=== PATIENT | male | born 1970 | race African-American/Black ===

== ENCOUNTER 2017-03-06 01:35 | Emergency (ER) | payer MEDICAID ==
[~2017-03-06] VITALS: Ht 185.4 cm; Wt 134.7 kg
[~2017-03-06 01:35] MED LIST: GABA300C3 PO; IBUP800T23 PO; METHO500 PO; NAPR500 PO; PERC5TAB12 PO; Z.0.WALKERFRONT; [UNRECOGNIZED DRUG - REMARK]
[2017-03-06 01:37] VITALS: BP 139/77; PULSE 73; RESP 18; TEMP 98.9; O2SAT 98
--- NOTE | 2017-03-06 03:38 | PD ---
HPI Chief Complaint: Back/ Neck Pain or Injury Time Seen by Provider: 03:38 Travel History International Travel<30 days: No Contact w/Intl Traveler<30days: No Traveled to known affect area: No History of Present Illness HPI 46 year old male with history of chronic back pain and back spasms, presents to emergency department for exacerbation of this. Patient states they started around 10 AM this morning. States he's been trying to tolerate them at home but he is unable to sleep because of them. Denies any new injury. No saddle paresthesia. No loss of bowel or bladder. No lower extremity weakness. Denies IV drug use Patient has no other symptoms to report. PFSH Past Medical History Asthma: No Autoimmune Disease: No Blood Disorders: No Heart Rhythm Problems: Yes (GÓMEZ) Cancer: No Cardiovascular Problems: Yes High Cholesterol: No Chest Pain: No Congestive Heart Failure: No COPD: Yes Diminished Hearing: No Endocrine: No Gout: Yes (right foot) Genitourinary: No Immune Disorder: No Implanted Vascular Access Dvce: Yes Musculoskeletal: Yes Neurologic: No Psychiatric: No Reproductive: No Respiratory: Yes Immunizations Current: Yes Myocardial Infarction: Yes Tetanus Vaccination: < 5 Years Influenza Vaccination: No PNEUMOCCOCAL Vaccine (Year): 2 Past Surgical History Body Medical Devices: SCREWS IN RIGHT HAND Tonsillectomy: Yes Other Surgery: Yes (right hand ) Social History Alcohol Use: Yes (OCC.) Tobacco Use: Yes (2 ppd) Substance Use: No Allergies-Medications (Allergen,Severity, Reaction): Coded Allergies: Lortab (Verified Adverse Reaction, Intermediate, VOMITS, 04/20/16) Reported Meds & Prescriptions Reported Meds & Active Scripts Active Flexeril (Cyclobenzaprine HCl) 10 Mg Tab 10 Mg PO TID PRN Naprosyn (Naproxen) 500 Mg Tab 500 Mg PO BID PRN Review of Systems Except as stated in HPI: all other systems reviewed are Neg Physical Exam Narrative GENERAL: Well-nourished, well-developed male patient, ambulatory with a nonantalgic gait. SKIN: Focused skin assessment warm/dry. HEAD: Normocephalic. EYES: No scleral icterus. No injection or drainage. NECK: Supple, trachea midline. No JVD or lymphadenopathy. CARDIOVASCULAR: Regular rate and rhythm without murmurs, gallops, or rubs. RESPIRATORY: Breath sounds equal bilaterally. No accessory muscle use. GASTROINTESTINAL: Abdomen soft, non-tender, nondistended. MUSCULOSKELETAL: No cyanosis, or edema. 5+ strength equal bilateral lower extremities. Sensation intact distal extremities. No hyperreflexia. BACK: No midline tenderness. Tenderness elicited palpation of the right lumbar paraspinous musculature. Without obvious deformity. No CVA tenderness. Data Data Last Documented VS Vital Signs Date Time Temp Pulse Resp B/P Pulse Ox O2 Delivery O2 Flow Rate FiO2 03/06/17 03:22 16 03/06/17 01:37 98.9 73 139/77 98 Room Air Orders Ketorolac Inj (Toradol Inj) (03/06/17 03:45) Orphenadrine Inj (Norflex Inj) (03/06/17 03:45) Urinalysis - C+S If Indicated (03/06/17 03:38) Corset Quick Draw (03/06/17 ) Brace Quick Draw Corset (03/06/17 ) Labs Laboratory Tests Test 03/06/17 03:45 Urine Color YELLOW Urine Turbidity CLEAR Urine pH 5.0 Urine Specific Iraan 1.025 Urine Protein NEG mg/dL Urine Glucose (UA) NEG mg/dL Urine Ketones NEG mg/dL Urine Occult Blood NEG Urine Nitrite NEG Urine Bilirubin NEG Urine Urobilinogen LESS THAN 2.0 MG/DL Urine Leukocyte Esterase NEG Urine RBC LESS THAN 1 /hpf Urine WBC 1 /hpf Microscopic Urinalysis Comment CULT NOT INDICATED MDM Medical Decision Making Medical Screen Exam Complete: Yes Emergency Medical Condition: Yes Medical Record Reviewed: Yes Differential Diagnosis Muscle spasm versus strain versus discogenic pain versus radiculopathy Narrative Course 46-year-old male presents to emergency department for evaluation of exacerbation of low back pain. Patient appears without distress. There are no acute findings on examination. Patient is given Toradol and Norflex IM. Upon reassessment, patient is resting in the bed with his eyes closed. When he has awoken to be discharged, as he reports that his pain still exists. He is offered a quick draw back brace that is applied here in the emergency department. He is counseled on care. He will be provided pain control home. He agrees to return immediately if any acute worsening of symptoms. Diagnosis Primary Impression: Chronic back pain Qualified Code: M54.5 - Chronic right-sided low back pain without sciatica Referrals: Primary Care Physician Patient Instructions: Back Pain (ED), General Instructions Additional Instructions: Ice and or warm moist heat may help to alleviate symptoms Follow-up with a primary care provider Avoid activity that exacerbates pain Seek pain management evaluation of symptoms persist to better control your pain Return immediately with any acute worsening symptoms Med/Other Pt SpecificInfo: Prescription(s) given Scripts Cyclobenzaprine (Flexeril)10 Mg Tab10 Mg PO TID PRN (MUSCLE SPASM) #15 TAB Ref 0 Prov:Ofe Montes De Oca 03/06/17 Naproxen (Naprosyn)500 Mg [id number] Mg PO BID PRN (PAIN SCALE 1 TO 10) #30 TAB Ref 0 Prov:Ofe Montes De Oca 03/06/17 Disposition: 01 DISCHARGE HOME Condition: Stable Ofe Montes De Oca Mar 06, 2017 03:38
[2017-03-06] MEDS ORDERED: ORPHENADRINE INJ 60 MG/2 ML AMP IM ONE (03:45)
[2017-03-06] MEDS ORDERED: KETOROLAC TROMETHAMINE 60 MG/2 ML (IM) VIAL IM ONE (03:45)
[2017-03-06 04:39] LABS: BLOOD, URINE NEG (NEG); COMMENT (UR) CULT NOT INDICATED; CULTURE IF INDICATED CULT NOT INDICATED; GLUCOSE,URINE NEG (NEG); KETONE, URINE NEG (NEG); NITRITE,URINE NEG (NEG); URINE COLOR YELLOW (YELLW/STRAW)
[2017-03-06] MEDS ORDERED: NAPR500 PO (04:47)
[2017-03-06] MEDS ORDERED: CYCL1TAB29 PO (04:47)
== END 2017-03-06 05:40 | disposition home or self-care (01) ==
LOC: NEPD 01:35
DX: M54.9 Dorsalgia, unspecified (principal); G89.29 Other chronic pain; J44.9 Chronic obstructive pulmonary disease, unspecified; M10.9 Gout, unspecified; I25.2 Old myocardial infarction; F17.200 Nicotine dependence, unspecified, uncomplicated; Z79.899 Other long term (current) drug therapy
CPT/HCPCS: 81001; 96372; 99284; J1885; J2360; L0627

== ENCOUNTER 2017-11-15 01:40 | Emergency (ER) | payer SELFPAY ==
[~2017-11-15] VITALS: Ht 185.4 cm; Wt 135.0 kg
[~2017-11-15 01:40] MED LIST changes: +CYCL10TA PO; -GABA300C3 PO; -IBUP800T23 PO; -METHO500 PO; -PERC5TAB12 PO; -Z.0.WALKERFRONT; -[UNRECOGNIZED DRUG - REMARK]
[2017-11-15 01:45] VITALS: BP 151/73; PULSE 76; RESP 18; TEMP 98.2; O2SAT 97
--- NOTE | 2017-11-15 02:03 | PD ---
HPI Chief Complaint: Oral / Dental Pain or Problem Time Seen by Provider: 01:52 Travel History International Travel<30 days: No Contact w/Intl Traveler<30days: No Traveled to known affect area: No History of Present Illness HPI 47-year-old black male presents emergency department with complains of right upper maxilla dental pain. Patient states that he had been seen by the dentist in the last 1-2 weeks. He has been put on antibiotics and given Motrin 800 mg. He states that he has several teeth pulled. He was told to follow-up. And that he may need additional procedures. Patient denies any fever chills. He states the pain is gotten worse over the last few days. He has been taking ibuprofen without relief. No exacerbating activity. No alleviating activity. Patient denies any fever chills, facial swelling. History Past Medical Histgory Narrative Medical Hypertension, periodontal disease Tetanus Vaccination: < 5 Years Hx Cancer: No Past Surgical History Narrative Surgical Dental extractions Social History Alcohol Use: Yes (OCC.) Tobacco Use: Yes (2 ppW) Allergies-Medications (Allergen,Severity, Reaction): Coded Allergies: acetaminophen (Unverified Adverse Reaction, Intermediate, VOMITS, 11/15/17) hydrocodone (Unverified Adverse Reaction, Intermediate, VOMITS, 11/15/17) Reported Meds & Prescriptions Reported Meds & Active Scripts Active Flexeril (Cyclobenzaprine HCl) 10 Mg Tab 10 Mg PO TID PRN Naprosyn (Naproxen) 500 Mg Tab 500 Mg PO BID PRN Review of Systems General / Constitutional: No: Fever Eyes: No: Visual changes HENT: Positive: Dental Difficulties, No: Headaches, Sore Throat, Rhinorrhea, Congestion, Gingival Bleeding Cardiovascular: No: Chest Pain or Discomfort Respiratory: No: Shortness of Breath Gastrointestinal: No: Abdominal Pain Genitourinary: No: Dysuria Musculoskeletal: No: Pain Skin: No Rash Neurologic: Positive: Headache, No: Weakness Psychiatric: No: Depression Endocrine: No: Polydipsia Hematologic/Lymphatic: No: Easy Bruising Physical Exam Narrative GENERAL: Well-developed, well-nourished in no acute distress. Nontoxic appearing. HEAD: Normocephalic, atraumatic. EYES: Pupils equal round and reactive. Extraocular motions intact. No scleral icterus. No injection or drainage. ENT: TMs clear without erythema. The external auditory canals clear. Nose: clear . Posterior pharynx is pink and moist. No tonsillar edema or exudate. Uvula midline. Airway patent. Patient has evidence of prior recent dental extractions. He points to his first molar as a source of his pain. I do not see any significant swelling. There is periodontal disease but I do not see any obvious abscess at this time. Oral care radius clear and patent. There is no facial swelling. NECK: Trachea midline.Supple, nontender, moves head freely. No central bony tenderness or spasm. CARDIOVASCULAR: Regular rate and rhythm without murmurs, gallops, or rubs. RESPIRATORY: Clear to auscultation. Breath sounds equal bilaterally. No wheezes , rales, or rhonchi. GASTROINTESTINAL: Abdomen soft, non-tender, nondistended. No hepato-splenomegaly , or palpable masses. No guarding. EXTREMITIES: No clubbing, cyanosis, or edema. No joint tenderness, effusion, or edema noted. BACK: Nontender without deformity or crepitance. No flank tenderness. Data Data Last Documented VS Vital Signs Date Time Temp Pulse Resp B/P (MAP) Pulse Ox O2 Delivery O2 Flow Rate FiO2 11/15/17 01:45 98.2 76 18 151/73 (99) 97 MDM Medical Screen Exam Complete: Yes Emergency Medical Condition: No Differential Diagnosis MDM: Moderate Differential diagnoses: Dental abscess, dental caries, osteitis, cellulitis, periodontal disease Narrative Course A medical screening exam was performed: At the time of evaluation the presenting medical condition was determined not to be of an emergent nature. The patient was given the option of receiving additional care, but declined. Patient was given options for additional community resources from which to obtain care. The Patient Has Been advised to seek medical attention for their presenting complaint. The patient has been advised to return to the ER at any time if an emergent condition develops. Primary Impression: Encounter for medical screening examination Condition: Kj Truong Nov 15, 2017 02:03
== END 2017-11-15 02:16 | disposition left against medical advice (07) ==
LOC: NEPD 01:40
DX: K08.89 Other specified disorders of teeth and supporting structures (principal); F17.200 Nicotine dependence, unspecified, uncomplicated
CPT/HCPCS: 99281

== ENCOUNTER 2018-04-12 05:05 | Observation (INO) ==
[2018-04-12] MEDS ORDERED: Pantoprazole Inj 40 MG Vial IV.PUSH ONE (05:29)
--- NOTE | 2018-04-12 05:34 | ED ---
HPI General Chief complaint: Chest Pain Stated complaint: chest pain/sob/headache Time Seen by Provider: 04/12/18 05:16 Source: patient Limitations: no limitations History of Present Illness HPI narrative: The patient is a 47 year old male who presents to the [facility] emergency department with a history of hypertension, COPD, and chronic back pain c/o chest pain. His pain began shortly after laying down to go to sleep 3 Mar and was unable to rest due to midsternal pain. He rates the pain 9/ 10. Describes the pain as a sharp, pinching pain, that does not radiate. He took 1/2 tab of his narcotic pain reliever without any relief to his chest pain. Endorses bilateral headache with the onset of his chest pain. He reports frequent indigestion with acidic taste in his mouth. Denies Nausea/vomiting, dizziness, LOC, changes in his vision, change in his baseline shortness of breath. The patient reports that he has had a chemical stress test in the past , however he cannot recall when he last had it. The patient reports that he does have a history of acid reflux. He reports that he intermittently will take Zantac for discomfort. He has not taken any recently. Related Data Home Medications Medication Instructions Recorded Confirmed metoprolol tartrate 25 mg PO BID 04/12/18 04/12/18 Allergies Allergy/AdvReac Type Severity Reaction Status Date / Time acetaminophen AdvReac Intermediate VOMITS Unverified 04/12/18 05:05 hydrocodone AdvReac Intermediate VOMITS Unverified 04/12/18 05:05 Review of Systems Constitutional Reports system reviewed and no additional complaints, except as docu Eyes Reports system reviewed and no additional complaints, except as docu ENT Denies dizziness Cardiovascular Reports chest pain, Denies syncope, Denies edema, Denies lightheadedness and Denies radiating jaw, neck or arm pain Respiratory Reports as per HPI and Reports cough Gastrointestinal Denies change in bowel habits, Denies constipation, Reports excessive flatus and Denies diarrhea Genitourinary Reports system reviewed and no additional complaints, except as docu Musculoskeletal Reports back pain Neurologic Denies dizziness and Reports headache(s) [facility] Medical History Medical History Fusion of lumbar spine (Acute) Patient denies medical problems (Acute) COPD (chronic obstructive pulmonary disease) (Acute) Hypertension (Acute) Social History Social History Substance History: No History of Abuse Second Hand Smoke Exposure: Yes Smoking Status: Current every day smoker Tobacco Type: Cigarettes How Often Do You Have a Drink Containing Alcohol: 2 to 4 times a month Immunization History Tetanus Immunization: <5 Years Hx Influenza Vaccine This Season: No Exam HENMT Head: normocephalic and atraumatic Nose: no nasal discharge and no epistaxis Mouth: moist mucous membranes Eyes Sclera: normal sclerae Pupils: PERRL Neck Neck: trachea midline and no JVD Resp Effort & Inspection: no use of accessory muscles Auscultation: clear to auscultation bilaterally Cardio Rate: regular rate Rhythm: regular rhythm Heart Sounds: no murmurs GI Inspection: non-distended Palpation: soft, no hepatosplenomegaly and tender (Tender to light palpation epigastric region) Skin General: dry skin (warm) Neuro General: alert and awake Cranial Nerves: other Speech: speech normal Motor: no movement abnormalities noted Extrem General: normal to inspection, no clubbing, no cyanosis and no edema Psych Mood: congruent mood Affect: normal affect Judgment: judgment good Course Initial Documented Vital Signs Temperature 98.5 F 04/12/18 05:06 Pulse Rate 70 04/12/18 05:06 Respiratory Rate 18 04/12/18 05:06 Blood Pressure 184/93 H 04/12/18 05:06 Pulse Oximetry 97 04/12/18 05:06 Last Documented Vital Signs Temperature 98.5 F 04/12/18 05:06 Pulse Rate 65 04/12/18 05:52 Respiratory Rate 20 04/12/18 05:52 Blood Pressure 121/71 04/12/18 05:52 Pulse Oximetry 96 04/12/18 05:52 Clinical Decision Support PERC Rule Age greater than or equal to 50: No HR greather than or equal to 100: No Sa02 on room air is less than 95%: No Unilateral Leg Swelling: No Hemoptysis: No Recent Surgery or Trauma: No Prior PE or DVT: No Hormone Use: No Wells' Criteria Questions Clinical Signs and Symptoms of DVT: No PE is primary diagnosis or equally likely: No Heart Rate greater than 100: No Immobilized at least 3 days or Surgery in previous 4 weeks: No Previous, objectively diagnosed PE or DVT: No Hemoptysis: No Malignancy with treatment within 6 months or palliative: No Wells' Criteria Score Wells' Criteria Score: 0 Medical Decision Making MDM Narrative Medical decision making narrative: During the course of the patient's emergency department visit, the patient's history, examination, and differential diagnosis were reviewed with the patient. The patient was placed on a cardiac monitor technician with oximetry and frequent blood pressure monitoring. The patient had IV access obtained and blood work sent for analysis. The patient was initially provided aspirin 324 mg PO, nitroglycerin sublingual and paste, and pantoprazole IV. The patient's diagnostic evaluation is remarkable for a white count of 9.6, platelets 239, monocytes 9.0, hemoglobin within normal limits at 14.1, PT 9.5, PTT 25.9, chemistry is remarkable for troponin I of less than 0.02, CPK 380, lipase within normal limits at 93, magnesium 1.7, BNP 10. The patient had a chest x-ray that showed no acute cardiopulmonary disease. The patient will be admitted to the chest pain center for rule out serial cardiac enzyme protocol followed by consideration of stress testing. The patient has reported chest pain shortness of breath with a history of hypertension. The patient's results were discussed with the patient, including the plan of care. I explained that further testing and/ or monitoring is indicated based on the patient's history, examination, and/ or laboratory findings. Therefore, I recommended admission for additional evaluation. The patient expressed understanding and was agreeable with this plan. The patient was admitted to the hospital in stable condition and sent to a bed under the care of the [facility]. Medical Screen Exam Complete: Yes Emergency Medical Condition: Yes Differential Diagnosis Differential Diagnosis: Acute coronary syndrome, versus pancreatitis, versus acid reflux, versus pulmonary embolism, versus pneumothorax Medical Records Medical records reviewed: Yes I reviewed the patient's medical records. Lab Data Lab results reviewed: Yes I reviewed the patient's lab results. Result diagrams: 04/12/18 05:30 04/12/18 05:30 Lab Results 04/12/18 04/12/18 04/12/18 Range/Units 05:30 05:30 05:30 WBC 9.6 (4.0-11.0) th/mm3 RBC 4.91 (4.50-5.90) mil/mm3 Hgb 14.1 (13.0-17.0) gm/dL Hct 42.0 (39.0-51.0) % MCV 85.6 (80.0-100.0) fL MCH 28.8 (27.0-34.0) pg MCHC 33.7 (32.0-36.0) % RDW 13.7 (11.6-17.2) % Plt Count 239 (150-450) th/mm3 MPV 8.5 (7.0-11.0) fL Neut % (Auto) 50.2 (16.0-70.0) % Lymph % (Auto) 36.2 (9.0-44.0) % Kingfisher % (Auto) 9.0 H (0.0-8.0) % Eos % (Auto) 3.5 (0.0-4.0) % Baso % (Auto) 1.1 (0.0-2.0) % Neut # (Auto) 4.8 (1.8-7.7) th/mm3 Lymph # (Auto) 3.5 (1.0-4.8) th/mm3 Kingfisher # (Auto) 0.9 (0.0-0.9) th/mm3 Eos # (Auto) 0.3 (0.0-0.4) th/mm3 Baso # (Auto) 0.1 (0.0-0.2) th/mm3 WBC Differential . Differential Comment Auto diff final PT (9.8-11.6) sec INR Ratio APTT (24.3-30.1) sec Sodium 140 (136-145) meq/L Potassium 3.9 (3.5-5.1) meq/L Chloride 107 (98-107) meq/L Carbon Dioxide 23.7 (21.0-32.0) meq/L Anion Gap 9 (5-15) meq/L BUN 18 (7-18) mg/dL Creatinine 1.01 (0.60-1.30) mg/dL Estimated GFR Greater than 89 (>89) mL/min Random Glucose 92 (74-106) mg/dL Calcium 8.8 (8.5-10.1) mg/dL Magnesium 1.7 (1.5-2.5) mg/dL Total Bilirubin 0.2 (0.2-1.0) mg/dL AST 23 (15-37) U/L ALT 41 (12-78) U/L Alkaline Phosphatase 93 (45-117) U/L Total Creatine Kinase 380 H (39-308) U/L Troponin I Less than 0.02 L (0.02-0.05) ng/mL B-Natriuretic Peptide 10 (0-100) pg/mL Total Protein 7.3 (6.4-8.2) g/dL Albumin 3.6 (3.4-5.0) g/dL Lipase 93 (73-393) U/L 04/12/18 Range/Units 05:30 WBC (4.0-11.0) th/mm3 RBC (4.50-5.90) mil/mm3 Hgb (13.0-17.0) gm/dL Hct (39.0-51.0) % MCV (80.0-100.0) fL MCH (27.0-34.0) pg MCHC (32.0-36.0) % RDW (11.6-17.2) % Plt Count (150-450) th/mm3 MPV (7.0-11.0) fL Neut % (Auto) (16.0-70.0) % Lymph % (Auto) (9.0-44.0) % Kingfisher % (Auto) (0.0-8.0) % Eos % (Auto) (0.0-4.0) % Baso % (Auto) (0.0-2.0) % Neut # (Auto) (1.8-7.7) th/mm3 Lymph # (Auto) (1.0-4.8) th/mm3 Kingfisher # (Auto) (0.0-0.9) th/mm3 Eos # (Auto) (0.0-0.4) th/mm3 Baso # (Auto) (0.0-0.2) th/mm3 WBC Differential Differential Comment PT 9.5 L (9.8-11.6) sec INR 0.9 Ratio APTT 25.9 (24.3-30.1) sec Sodium (136-145) meq/L Potassium (3.5-5.1) meq/L Chloride (98-107) meq/L Carbon Dioxide (21.0-32.0) meq/L Anion Gap (5-15) meq/L BUN (7-18) mg/dL Creatinine (0.60-1.30) mg/dL Estimated GFR (>89) mL/min Random Glucose (74-106) mg/dL Calcium (8.5-10.1) mg/dL Magnesium (1.5-2.5) mg/dL Total Bilirubin (0.2-1.0) mg/dL AST (15-37) U/L ALT (12-78) U/L Alkaline Phosphatase (45-117) U/L Total Creatine Kinase (39-308) U/L Troponin I (0.02-0.05) ng/mL B-Natriuretic Peptide (0-100) pg/mL Total Protein (6.4-8.2) g/dL Albumin (3.4-5.0) g/dL Lipase (73-393) U/L Imaging Data Radiologist's impression: Chest X-Ray 04/12/18 05:29 CONCLUSION: No acute cardiopulmonary abnormality is identified. ECG Data Attestation: I personally reviewed and interpreted this ECG as follows: Interpretation: The patient had an EKG done on arrival. The patient's EKG reveals a sinus rhythm heart rate of 63, QRS duration 108 ms, QTC [address] segment elevation. Discharge Plan Discharge Disposition Patient Disposition: 30 Still Patient Discharge Details Diagnosis: Chest pain, rule out acute myocardial infarction Physicians Team ED Provider: Yuli Gilliam Primary Care Provider: Primary Care [facility] [place] Rxs /Orders / Referrals /Forms Prescriptions: No Action metoprolol tartrate 25 mg Tablet 25 mg PO BID RF: 0 Discharge Instructions Patient Printed Instructions: Chest Pain (ED) Discharge Interventions Interventions: Vital Signs Last Done: 04/12/18 05:17 Status ED Status: With Doctor
[2018-04-12 05:52] LABS: Baso # (Auto) 0.1 th/mm3 (0.0-0.2); Baso % (Auto) 1.1 % (0.0-2.0); Eos # (Auto) 0.3 th/mm3 (0.0-0.4); Eos % (Auto) 3.5 % (0.0-4.0); Hemoglobin 14.1 gm/dL (13.0-17.0); Lymph # (Auto) 3.5 th/mm3 (1.0-4.8); Lymph % (Auto) 36.2 % (9.0-44.0); Mean Corpuscular HGB Conc 33.7 % (32.0-36.0); Mean Corpuscular Hemoglobin 28.8 pg (27.0-34.0); Mean Corpuscular Volume 85.6 fL (80.0-100.0); Mean Platelet Volume 8.5 fL (7.0-11.0); Mono # (Auto) 0.9 th/mm3 (0.0-0.9); Neut # (Auto) 4.8 th/mm3 (1.8-7.7); Neut % (Auto) 50.2 % (16.0-70.0); Platelet Count 239 th/mm3 (150-450); Red Blood Count 4.91 mil/mm3 (4.50-5.90); Red Cell Distribution Width 13.7 % (11.6-17.2); White Blood Count 9.6 th/mm3 (4.0-11.0)
[2018-04-12 05:58] LABS: Activated Partial Thrombo Time 25.9 sec (24.3-30.1); INR 0.9 Ratio; Prothrombin Time 9.5 sec (9.8-11.6)
--- NOTE | 2018-04-12 06:06 | XR ---
EXAM DATE: 04/12/2018 6:02 AM EDT AGE/SEX: 47 years / Male INDICATIONS: Chest pain and shortness of breath today. CLINICAL DATA: This is the patient's initial encounter. Patient reports that signs and symptoms have been present for 1 day and indicates a pain score of 5/10. MEDICAL/SURGICAL HISTORY: None. Discectomy, lumbar. [place] [facility] [place]. . FINDINGS: Portable AP view of the chest demonstrates a normal-sized cardiac silhouette. No effusion, consolidat ion, or pneumothorax is identified. The bones and soft tissues demonstrate no acute finding. CONCLUSION: No acute cardiopulmonary abnormality is identified. Electronically signed by: Jose Carrera MD 04/12/2018 6:04 AM EDT
[2018-04-12 06:11] LABS: Alanine Aminotransferase 41 U/L (12-78); Albumin 3.6 g/dL (3.4-5.0); Anion Gap 9 meq/L (5-15); Aspartate Aminotransferase 23 U/L (15-37); Blood Urea Nitrogen 18 mg/dL (7-18); Calcium 8.8 mg/dL (8.5-10.1); Carbon Dioxide 23.7 meq/L (21.0-32.0); Chloride 107 meq/L (98-107); Glomerular Filtration Rate Greater Than 89 mL/min (>89); Glucose,Random 92 mg/dL (74-106); Lipase 93 U/L (73-393); Magnesium 1.7 mg/dL (1.5-2.5); Potassium 3.9 meq/L (3.5-5.1); Sodium 140 meq/L (136-145)
[2018-04-12 06:15] LABS: Alkaline Phosphatase 93 U/L (45-117); Creatine Kinase 380 U/L (39-308); Total Protein 7.3 g/dL (6.4-8.2)
[2018-04-12 06:27] LABS: CKMB Percent 0.8 % (0.0-4.0); Creatine Kinase MB 3.2 ng/mL (0.5-3.6)
--- NOTE | 2018-04-12 08:36 | ECG ---
Date Performed: 04/12/2018 Time Performed: 05:14:00 PTAGE: 47 years EKG: Sinus rhythm NORMAL ECG Since PREVIOUS TRACING , no significant change noted PREVIOUS TRACIN07/19/2015 02.22 DOCTOR: Lily Polanco Interpretating Date/Time 04/12/2018 08:36:00
--- NOTE | 2018-04-12 08:38 | P.HPCA ---
History of Present Illness Primary Care Physician: No Primary Care Physician Chief Complaint: Chest pain History of Present Illness: 47-year-old male with history of hypertension and current smoker presents emergency room for further evaluation of chest pain. Onset Wednesday morning. Location substernal. Characterizes aching, sharp shooting pain. Radiation to back. No associated symptoms of nausea, vomiting, dyspnea, or diaphoresis. Duration constant. When going to bed last night, discomfort made worse. No precipitating or relieving factors. No recent illness, cough, fever, or injury. Denies similar pain in the past. Inspiration, position, or movement does not make pain better or worse. Family history noncontributory for early onset cardiovascular disease. Currently he does not have a primary care provider, request bp medication refill he only has 10 pills remaining. No known coronary artery disease, diabetes, or hyperlipidemia. Past cardiac testing [facility] in 2003 reported to be normal. Social history Current 1/2 pack smoker daily. Denies any alcohol or recreational drug use. . Endorses a sedentary lifestyle. Family history Noncontributory for early onset cardiovascular disease. - Diagnosis (1) Atypical chest pain (2) History of hypertension (3) Tobacco use Review of Systems All other systems reviewed negative except as stated in HPI PMFSH - History History Provided By: Patient, Significant Other - Medical History Medical History: Medical History (Last Updated 04/12/18 @ 12:11 by MARY Thakkar) Fusion of lumbar spine (Acute) COPD (chronic obstructive pulmonary disease) Hypertension - Tobacco History Second Hand Smoke Exposure: Yes Tobacco Use In Past 30 Days: Yes Smoking Status: Current every day smoker Tobacco Type: Cigarettes Packs Per Day: 0.5 - Alcohol History How Often Do You Have a Drink Containing Alcohol: 2 to 4 times a month - Substance Use History Substance History: No History of Abuse - Immunization History Tetanus Immunization: <5 Years Hx Influenza Vaccine This Season: No Medications and Allergies Active Medications: Active Medications Pantoprazole Sodium (Protonix) 40 mg PO DAILY IZAIAH Sodium Chloride (Ns Flush) 2 ml IV.FLUSH UNSCH PRN PRN Reason: FLUSH AFTER USING IV ACCESS Sodium Chloride (Ns Flush) 2 ml IV.FLUSH BID IZAIAH Sodium Chloride (Ns Flush) 2 ml IV.FLUSH PRN PRN PRN Reason: FLUSH AFTER USING IV ACCESS Allergies Allergy/AdvReac Type Severity Reaction Status Date / Time acetaminophen AdvReac Intermediate VOMITS Unverified 04/12/18 05:05 hydrocodone AdvReac Intermediate VOMITS Unverified 04/12/18 05:05 Exam Vital signs: Vital Signs 04/12/18 05:06 04/12/18 05:17 04/12/18 05:47 Temperature 98.5 F Pulse Rate 70 62 64 Respiratory Rate 18 20 20 Blood Pressure 184/93 H 149/88 H 132/74 Pulse Oximetry 97 99 97 04/12/18 05:52 04/12/18 07:45 04/12/18 08:00 Temperature 97.5 F L Pulse Rate 65 68 57 L Respiratory Rate 20 18 18 Blood Pressure 121/71 112/63 122/70 Pulse Oximetry 96 95 Intake & Output 04/11/18 04/12/18 04/12/18 18:59 06:59 18:59 Weight 129.274 kg Narrative: GENERAL: Alert WN, WD, NAD, pleasant, obese -[place] male HEAD: NC, AT NECK: Supple, no masses, trachea midline CV: RRR, without murmur, rub, gallop, no JVD. Substernal chest wall pain easily reproduced with palpation. RESP: Diminished, rhonchi, and expiratory wheeze throughout bilateral. no crackles. symmetrical chest rise, nonlabored, able to speak in full sentences ABD: Soft, NT, ND, no masses, positive bowel tones EXT: Pulses +2x4, no dependent edema MS: Normal tone x4 extremities, nontender, no obvious deformities, full range of motion NEURO: CN II through CN XII grossly intact, motor strength 5/5, gait WNL PSYCH: A+O x3, pleasant affect, appropriate speech, mood, insight and judgment SKIN: Normal turgor, normal texture, no lesions, no rashes Results 04/12/18 05:30 04/12/18 05:30 Cardiac Enzymes 04/12/18 04/12/18 Range/Units 05:30 05:30 AST 23 (15-37) U/L CK-MB (CK-2) 3.2 (0.5-3.6) ng/mL Troponin I Less than 0.02 L (0.02-0.05) ng/mL B-Natriuretic Peptide 10 (0-100) pg/mL Coagulation 04/12/18 04/12/18 Range/Units 05:30 05:30 PT 9.5 L (9.8-11.6) sec APTT 25.9 (24.3-30.1) sec B-Natriuretic Peptide 10 (0-100) pg/mL CBC 04/12/18 Range/Units 05:30 WBC 9.6 (4.0-11.0) th/mm3 RBC 4.91 (4.50-5.90) mil/mm3 Hgb 14.1 (13.0-17.0) gm/dL Hct 42.0 (39.0-51.0) % Plt Count 239 (150-450) th/mm3 Neut # (Auto) 4.8 (1.8-7.7) th/mm3 Lymph # (Auto) 3.5 (1.0-4.8) th/mm3 Winkler # (Auto) 0.9 (0.0-0.9) th/mm3 Eos # (Auto) 0.3 (0.0-0.4) th/mm3 Baso # (Auto) 0.1 (0.0-0.2) th/mm3 Comprehensive Metabolic Panel 04/12/18 Range/Units 05:30 Sodium 140 (136-145) meq/L Potassium 3.9 (3.5-5.1) meq/L Chloride 107 (98-107) meq/L Carbon Dioxide 23.7 (21.0-32.0) meq/L BUN 18 (7-18) mg/dL Creatinine 1.01 (0.60-1.30) mg/dL Calcium 8.8 (8.5-10.1) mg/dL AST 23 (15-37) U/L ALT 41 (12-78) U/L Alkaline Phosphatase 93 (45-117) U/L Total Protein 7.3 (6.4-8.2) g/dL Albumin 3.6 (3.4-5.0) g/dL Intake and Output 04/11/18 04/12/18 04/12/18 22:59 06:59 14:59 Other: Weight 129.274 kg EKG interpretations - EKG EKG results cardiology: sinus rhythm, normal axis, normal QRS, normal ST/T (1st ekg nsr, no st t changes, 2nd ekg nsr, nonspecific st t changes) Caprini VTE Risk Assessment Caprini VTE Risk Assessment: No/Low Risk (score <= 1) Caprini Risk Assessment Model: Point Value = 1 Point Value = 2 Point Value = 3 Point Value = 5 Age 41-60 Minor surgery BMI > 25 kg/m2 Swollen legs Varicose veins or History of unexplained or recurrent spontaneous Oral contraceptives or hormone replacement Sepsis (< 1 month) Serious lung disease, including pneumonia (< 1 month) Abnormal pulmonary function Acute myocardial infarction Congestive heart failure (< 1 month) History of inflammatory bowel disease Medical patient at bed rest Age 61-74 Arthroscopic surgery Major open surgery (> 45 min) Laparoscopic surgery (> 45 min) Malignancy Confined to bed (> 72 hours) Immobilizing plaster cast Central venous access Age >= 75 History of VTE Family history of VTE Factor V Leiden Prothrombin [id number] Lupus anticoagulant Anticardiolipin antibodies Elevated serum homocysteine Heparin-induced thrombocytopenia Other congenital or acquired thrombophilia Stroke (< 1 month) Elective arthroplasty Hip, pelvis, or leg fracture Acute spinal cord injury (< 1 month) Prophylaxis Regimen: Total Risk Factor Score Risk Level Prophylaxis Regimen 0-1 Low Early ambulation 2 Moderate Order ONE of the following: *Sequential Compression Device (SCD) *Heparin 5000 units SQ BID 3-4 Higher Order ONE of the following medications: *Heparin 5000 units SQ TID *Enoxaparin/Lovenox 40 mg SQ daily (WT < 150 kg, CrCl > 30 mL/min) *Enoxaparin/Lovenox 30 mg SQ daily (WT < 150 kg, CrCl > 10-29 mL/min) *Enoxaparin/Lovenox 30 mg SQ BID (WT < 150 kg, CrCl > 30 mL/min) AND/OR *Sequential Compression Device (SCD) 5 or more Highest Order ONE of the following medications: *Heparin 5000 units SQ TID (Preferred with Epidurals) *Enoxaparin/Lovenox 40 mg SQ daily (WT < 150 kg, CrCl > 30 mL/min) *Enoxaparin/Lovenox 30 mg SQ daily (WT < 150 kg, CrCl > 10-29 mL/min) *Enoxaparin/Lovenox 30 mg SQ BID (WT < 150 kg, CrCl > 30 mL/min) AND *Sequential Compression Device (SCD) Assessment and Plan - Assessment (1) Atypical chest pain Code(s): R07.89 - Other chest pain Status: Acute Plan: Admitted chest pain center. Ruled out with 2 sets of EKGs and cardiac enzymes. Seen and evaluated by Dr. Lily Polanco. Proceed with exercise cardiac testing this morning. If unremarkable, plans are to discharge home with follow- up with a primary care provider. Encouraged to reestablish with a local primary care provider. (2) History of hypertension Code(s): Z86.79 - Personal history of other diseases of the circulatory system Status: Chronic Plan: Continue metoprolol, refill upon discharge. Discussed weight lost, following a low sodium diet, tobacco use, and increasing daily activity. (3) Tobacco use Code(s): Z72.0 - Tobacco use Status: Chronic Plan: Strongly encouraged and stressed the importance of tobacco cessation. Instructed to quit smoking especially with reported history of COPD. Discussed current breath sounds due to long standing smoking history and need for tobacco cessation.
[2018-04-12 10:02] LABS: Creatine Kinase 295 U/L (39-308)
[2018-04-12 11:54] VITALS: O2SAT 100
[2018-04-12] MEDS ORDERED: Ketorolac Inj 30 MG/ML (IVP) Vial IV.PUSH ONE (12:00)
[2018-04-12] MEDS ORDERED: Regadenoson Inj 0.4 MG/5 ML Syringe IV.PUSH ONE (14:24)
--- NOTE | 2018-04-12 15:28 | NM ---
EXAM DATE: 04/12/2018 3:25 PM EDT AGE/SEX: 47 years / Male INDICATIONS:Angina. . Midsternal chest pain. CLINICAL DATA: This is the patient's initial encounter. Patient reports that signs and symptoms have been present for 2 days and indicates a pain score of 9/10. MEDICAL/SURGICAL HISTORY: Hypertension. Fusion, lumbar. COMPARISON: No prior exams available for comparison. DOSE: 11 mCi Tc 99m Myoview at rest 35 mCi [id number] at stress 0.4 mg Lexiscan STRESS SYMPTOMS: None. EJECTION FRACTION: 44 % TECHNIQUE: The patient underwent pharmacologic stress with infusion of prescribed dose. Continuous ECG tracing was monitored during stress. Gated SPECT imaging was performed after stress and conventi onal SPECT imaging was performed at rest. The examination was performed on a SPECT/CT scanner, both attenuation and non-corrected datasets were reviewed. FINDINGS: Distribution: The maximum perfused segment at stress is in the lateral wall. Perfusion Study: The pattern of perfusion at stress is within normal limits. Gated Study: There are intact wall motion and wall thickening without hypokinetic or dyskinetic segm ents. The ejection fraction is calculated at 44%. RISK CATEGORY: Low (<1% Annual Motality Rate) CONCLUSION: 1. No evidence to suggest ischemic myocardial changes. 2. Mildly diminished cardiac ejection fraction of 44%. Electronically signed by: Elpidio Hilliard MD 04/12/2018 3:27 PM EDT
[2018-04-12 15:40] VITALS: BP 142/78; PULSE 54; RESP 18; TEMP 97.8
--- NOTE | 2018-04-12 16:45 | ECG ---
Date Performed: 04/12/2018 Time Performed: 08:47:59 PTAGE: 47 years EKG: SINUS BRADYCARDIA MODERATE INTRAVENTRICULAR CONDUCTION DELAY NONSPECIFIC ST & T-WAVE ABNORM ALITY BORDERLINE ECG Since PREVIOUS TRACING , no significant change noted DOCTOR: Lily Polanco Interpretating Date/Time 04/12/2018 16:44:35
--- NOTE | 2018-04-12 16:52 | TR ---
Date Performed: 04/12/2018 Time Performed: 11:22:00 DOCTOR: Lily Polanco DRUG LIST: CLINICAL HISTORY: REASON FOR TEST: REASON FOR ENDING: OBSERVATION: CONCLUSION: Matheus protocol attempted. Stopped sec to inablity to walk safely in stage 3. No repr od chest pain. No ectopy. Recovery unremarkable. COMMENTS: No ischemia
--- NOTE | 2018-04-13 13:00 | TR ---
Date Performed: 04/12/2018 Time Performed: 14:27:09 DOCTOR: Gigi Mcgee DRUG LIST: CLINICAL HISTORY: REASON FOR TEST: REASON FOR ENDING: OBSERVATION: CONCLUSION: COMMENTS: Lexiscan stress test was performed under standard four minute protocol. Radionuclide was injected one minute prior to ending the test. No electrocardiographic abormalities were present t o suggest ischemia. Nuclear imaging and interpretation are pending.
== END 2018-04-12 17:04 | disposition home or self-care (01) ==
LOC: NEDA 05:05 → NEPE 05:05 → NEPGCP 08:01
PROVIDERS: ADMIT Internal Medicine Cardiovascular Disease; ATTEND Internal Medicine Cardiovascular Disease